=== PATIENT | female | born 1975 | race African-American/Black ===

== ENCOUNTER → 2022-05-22 | Outpatient (CLI) | payer MEDICARE, MEDICAID, SELFPAY ==
--- NOTE | 2022-05-22 10:10 | RAD_ITS ---
STUDY: X-RAY - ESOPHAGUS (BARIUM SWALLOW) WITH FLUOROSCOPY REASON FOR EXAM: Female, 46 years old. DYSPHAGIA. The patient is status post hiatal hernia repair. TECHNIQUE: 16 view(s) of the esophagus were obtained following swallowing of barium. FLUOROSCOPY TIME (if supplied): (36 seconds) minutes/seconds COMPARISON: None. FINDINGS: There is no demonstrated esophageal foreign body. There is no demonstrated stricture or mucosal abnormality. A metallic ring is seen at the gastroesophageal junction with narrowing of the gastroesophageal junction. The patient ingested a 12 mm tablet at bedtime. The tablet is trapped at the gastroesophageal junction. Normal visualized aortic arch and descending thoracic aorta. Normal visualized pulmonary parenchyma. Normal visualized osseous structures of the thorax. RAD/Esophagus Single Contrast IMPRESSION: Metallic bands seen at the gastroesophageal junction with narrowing of the distal esophagus. The ingested 12 mm tablet of barium is trapped at that site. Electronically Signed: Jonas Robles MD at 14:05 EST ,
== END | disposition home or self-care (01) ==
PROVIDERS: Referring Provider Otolaryngology Otolaryngology/Facial Plastic Surgery; Visit Provider Otolaryngology Otolaryngology/Facial Plastic Surgery
DX: R13.10 Dysphagia, unspecified (principal)
CPT/HCPCS: 74220

== ENCOUNTER → 2023-01-31 | Outpatient (CLI) | payer MEDICARE, MEDICAID, SELFPAY ==
[2023-01-31 16:03] LABS: Free T3 2.5 pg/mL (2.18-3.98); Thyroid Stim Hormone (TSH) 0.65 uIU/mL (0.358-3.74)
== END | disposition home or self-care (01) ==
LOC: PAVLAB 15:21
PROVIDERS: Referring Provider Surgery; Visit Provider Surgery
DX: E04.2 Nontoxic multinodular goiter (principal)
CPT/HCPCS: 36415; 84436; 84443; 84481

== ENCOUNTER → 2023-02-01 | Outpatient (CLI) | payer MEDICARE, MEDICAID, SELFPAY ==
--- NOTE | 2023-01-31 15:00 | FLU_PTH ---
PATIENT: CYNTHIA HACKETT LOC: [facility] U#:[id number] AGE/SX: 47/F ROOM: RE02/01/[address]: Dr. Tad Mackey MD : 1975 BED: DIS: 02/01/2023 SPEC #: [id number] RECD: 02/01/23 07:16 STATUS: JACKIE ALYCIA #: [id number] DANIEL: 01/31/23 15:[address]: Tad Mackey DEPT: CYTOLOGY RECD BY: Danielle Mason ENTERED: 02/01/23 10:36 SP TYPE: Fluid OTHR DR: No Primary Care Phys Tissues: A - Thyroid gland, NOS B - Thyroid gland, NOS C - Thyroid gland, NOS D - Thyroid gland, NOS E - Thyroid gland, NOS F - Thyroid gland, NOS Procedures: Special Stain Group II Surgery Specimen Level IV Cytospin Fluid Cytology Other HEADER OPERATION: Ultrasound-guided fine needle aspiration PRE-OP DIAGNOSIS: Multinodular goiter TISSUE SUBMITTED: A - Right inferior nodule fluid, B - Right inferior nodule x4 slides, C - Right superior nodule fluid, D - Right superior nodule fluid x4 slides, E - Left inferior nodule fluid, F - Left inferior nodule x4 slides DIAGNOSIS CYTOLOGY A. Fine needle aspiration, right inferior thyroid nodule (cytospin and cell block): Benign, consistent with benign follicular nodule with cystic component (Abrams Category II). See comment. B. Fine needle aspiration, right inferior thyroid nodule (smears): Atypia of undetermined significance (Abrams Category III). See comment. C. Fine needle aspiration, right superior thyroid nodule (cytospin and cell block): Benign, consistent with benign follicular/colloid nodule with cystic change (Abrams Category II). See comment. D. Fine needle aspiration, right superior thyroid nodule (smears): Benign, consistent with benign follicular/colloid nodule with cystic change (Abrams Category II). See comment. E. Fine needle aspiration, left inferior thyroid nodule (cytospin and cell block): Benign, consistent with benign follicular/colloid nodule with cystic change (Abrams Category II). See comment. F. Fine needle aspiration, left inferior thyroid nodule (smears): Benign, consistent with benign follicular/colloid nodule with cystic change (Abrams Category II). See comment. AM:cristi 02/02/2023 COMMENT A-F. The Abrams System for thyroid diagnostic categorization was used in the evaluation of this case. All specimens are adequate for evaluation. Multi-gene next-generation sequencing panel (Afirma) is recommended for this lesion. This recommendation was communicated to the physician's office. CYTOLOGY STUDY Slides are reviewed. CYTOLOGY GROSS A - Received is 40 ml of red cloudy fluid labeled with the patient's name and and designated per the requisition as right inferior nodule. Submitted for cytology preparation including cell block. B - Received are four smears labeled with the patient's name and designated per the requisition as right inferior nodule. Submitted for staining. C - Received is 20 ml of red cloudy fluid labeled with the patient's name and and designated per the requisition as right superior nodule. Submitted for cytology preparation including cell block. D - Received are four smears labeled with the patient's name and designated per the requisition as right inferior nodule. Submitted for staining. E - Received is 30 ml of red cloudy fluid labeled with the patient's name and and designated per the requisition as left inferior nodule. Submitted for cytology preparation including cell block. F - Received are four smears labeled with the patient's name and designated per the requisition as left inferior nodule. Submitted for staining. / cristi 02/01/2023 TC:? CPT: 26800 x6, 31274 x3
== END | disposition home or self-care (01) ==
LOC: LABSPEC 07:34
PROVIDERS: Referring Provider Surgery; Visit Provider Surgery
DX: E04.2 Nontoxic multinodular goiter (principal)
CPT/HCPCS: 88108; 88161; 88305; 88313

== ENCOUNTER → 2023-02-13 | Outpatient (CLI) | payer MEDICARE, MEDICAID, SELFPAY | END | disposition home or self-care (01) | PROVIDERS: Referring Provider Surgery; Visit Provider Surgery | DX: R69 Illness, unspecified (principal) ==

== ENCOUNTER → 2023-03-05 | Outpatient (CLI) | payer MEDICARE, MEDICAID, SELFPAY ==
--- NOTE | 2023-03-05 08:45 | FLU_PTH ---
PATIENT: CYNTHIA HACKETT LOC: [facility] U#:[id number] AGE/SX: 47/F ROOM: RE03/05/[address]: Dr. Tad Mackey MD : 1975 BED: DIS: 03/05/2023 SPEC #: [id number] RECD: 03/05/23 11:43 STATUS: JACKIE RELovely #: [id number] DAINEL: 03/05/23 08:[address]: Tad Mackey DEPT: CYTOLOGY RECD BY: Danielle Mason ENTERED: 03/05/23 11:44 SP TYPE: Fluid OTHR DR: No Primary Care Phys Tissues: A - Thyroid gland, NOS B - Thyroid gland, NOS Procedures: Special Stain Group II Surgery Specimen Level IV Cytospin Fluid Cytology Other HEADER OPERATION: Fine needle aspiration right inferior thyroid nodule PRE-OP DIAGNOSIS: Multiple thyroid nodules E04.2 TISSUE SUBMITTED: A - Right inferior thyroid nodule fluid, B - Right inferior thyroid nodule x4 slides DIAGNOSIS CYTOLOGY A. Right inferior thyroid nodule fluid, fine needle aspiration (cytospin and cell block): Negative for malignant cells. See comment. B. Right inferior thyroid nodule, fine needle aspiration (smears): Atypical follicular cells of undetermined significance, Cuba Category III. Adequate for evaluation. See comment. SJ:rg 03/06/2023 COMMENT A. The specimen is paucicellular and consists of a few clusters of benign follicular cells. B. Degenerative cells are also noted. Per recommendations and a clinician-approved plan (a call was made to the referring doctor about the recommendation), genomic testing (IronPearla) has been submitted. Results will be reported as an addendum and faxed to clinician. The Cuba System for thyroid diagnostic categorization was used in the evaluation of this case. Please make reference to previous specimen ([id number]) fine needle aspiration, right inferior thyroid nodule with diagnosis of atypia of undetermined significance. CYTOLOGY STUDY Slides are reviewed. CYTOLOGY GROSS A - Received is 30 ml of light pink cloudy fluid labeled with the patient's name and and designated per the requisition as right inferior thyroid nodule. Submitted for cytology preparation including cell block. B - Received are four smears labeled with the patient's name and designated per the requisition as right inferior thyroid. Submitted for staining. / cristi 03/05/2023 TC:5 CPT: 23374 x2, 78143 ADDENDUM ADDENDUM ADDENDUM ADDENDUM ADDENDUM ADDENDUM ADDENDUM 04/04/2023 08:20 ADDENDUM 04/04/2023 08:20 ADDENDUM 04/04/2023 08:20 ADDENDUM 04/04/2023 08:20 ADDENDUM 04/04/2023 08:20 AFIRMA RESULTS REPORT RESULTS INTERPRETATION: The result of this 1.6 cm Cuba III nodule A is Afirma GSC suspicious, which suggests a risk of cancer of approximately 50%. Please see complete report in e-chart or EMR
== END | disposition home or self-care (01) ==
LOC: LABSPEC 10:50
PROVIDERS: Referring Provider Surgery; Visit Provider Surgery
DX: E04.2 Nontoxic multinodular goiter (principal)
CPT/HCPCS: 88108; 88161; 88305; 88313

== ENCOUNTER 2023-04-25 13:29 | Observation (INO) | payer MEDICARE, MEDICAID, SELFPAY ==
[2023-04-17 08:48] LABS: Partial Thromboplast Time 31.3 Seconds (24.1-36.2)
[2023-04-17 09:12] LABS: Anion Gap 4 (5-15); BUN 11 mg/dL (7-18); BUN/Creat Ratio 11.9 RATIO (10-20); Calcium,Total 9.7 mg/dL (8.5-10.1); Chloride 100 mmol/L (98-107); Creatinine, Serum 0.93 mg/dL (0.55-1.02); EST Glomerular Filtration Rate 69 mL/min (>60); Est Glom Filt Rate - Afr Amer 83 mL/min (>60); Glucose 97 mg/dL (74-106); Potassium 3.4 mmol/L (3.5-5.1); Sodium Level 138 mmol/L (136-145)
[2023-04-19 14:09] LABS: Lamotrigine (Lamictal) Level 14.9 ug/mL (2.0-20.0)
[2023-04-25] VITALS (14 sets, daily range): BP systolic 114–150; BP diastolic 64–90; PULSE 95–122; RESP 16–18; TEMP 36.2–36.8; O2SAT 93–100; BMI 42.3; BMI 42.1
[2023-04-25] MEDS: Lactated Ringers 1,000 ML 15 ML IV ×2 (06:31→15:23)
[2023-04-25 07:02] LABS: Internal QC Validated? YES +Cl - CLEAR BKGD; Pregnancy, Serum, hCG Quali. NEGATIVE Negative
--- NOTE | 2023-04-25 07:10 | HP.PCM_ITS ---
History and Physical Date of Admission: 04/25/23 Date of Service: 04/02/23 MR#: [id number] Acct: [id number] Name: CYNTHIA Rosado Rep #: [id number] : 1975 Provider: Dr. Tad Mackey MD Age/Sex: 47/F Location: [facility] Status: Signed Intake Vital Signs 01/24/2309:18 04/02/2308:37 Height 5 ft 6 in BP 123/80 H Blood Pressure Location Rt brachial Position Sitting Respiration 17 Pulse 91 Pulse Source Monitor Temp 97.3 F L Temp Source Temporal Pulse Oximetry (%) 98 Oxygen Delivery Method room air Intake Visit Reasons: DISCUSS SURGERY Chief Complaint: discuss surgery Allergies No Known Allergies Allergy (Unverified 04/02/23 08:38) Medications losartan 50 mg-hydrochlorothiazide 12.5 mg tablet 1 tab PO DAILY 01/24/23 [History Confirmed 04/02/23] meloxicam 15 mg tablet 15 mg PO DAILY 01/24/23 [History Confirmed 04/02/23] olopatadine 0.1 % eye drops 1 drp ophthalmic (eye) BID 01/24/23 [History Confirmed 04/02/23] pantoprazole 20 mg tablet,delayed release 20 mg PO DAILY 01/24/23 [History Confirmed 04/02/23] valacyclovir 500 mg tablet (Valtrex) 1,000 mg PO DAILY 01/24/23 [History Confirmed 04/02/23] lamotrigine 150 mg tablet (Lamictal) 300 mg PO BID 04/02/23 [History Confirmed 04/02/23] PFSH Medical History Fatigue Multiple thyroid nodules Seizures Social History Smoking Status: Never smoker alcohol intake: never substance use type: does not use HPI HPI HPI: Patient 47-year-old female who made a prior surgical consultation visit 01/24/2023 but was not prepared for FNA biopsy of thyroid nodules as recommended. She presents today in follow-up with her family support (her mother) for discussions around surgical management of her condition. She denies any in terval changes to her health. Mostly the visit is centered around questions related to the proposed operation, however, patient's mother relates that there is significant apprehension from the family on undergoing another surgery for Ms. Rosado given a history of perioperative seizures during a past surgery on her foot. Below is recapitulated from patient's initial consultation visit for his review Patient is a 47-year-old female who presents for multiple thyroid nodules. They are referred for surgical consultation from Ms. Rosemarie NP. This was discovered incidentally during a work-up for some persistent right neck pain through the emergency department in [facility]. Patient had CT angio of the neck which initially showed the thyroid nodules followed by a formal thyroid ultrasound. Of note CT angio did demonstrate some tracheal deviation to the right from patient's large left-sided thyroid nodule. Patient reports that her pain is felt in the side (lateral) neck. She believes this was connected to a fall she experienced recently when she became profoundly dizzy and did not have anything nearby to grab onto. She states that she experiences a popping sensation in this part of her neck ever since. She reports that she has experienced this dizziness before and feels as though the room is spinning. She notes that her neurologist is aware of this issue. They do not experience difficulty with swallowing. They do not complain of a new cough. They do not appreciate new voice changes, but remarks that there is some hoarseness in the mornings. They do not have a history of snoring/sleep apnea. Additionally, their weight has been stable and they do not have a history of weight gain/loss. There is some history of recent fatigue, but Ms. Laguna states that she has had this for a long time and knows that it is related to a side effect of her antiseizure medication (Lamictal). They do not have a history of cold intolerance. Other symptoms include: Some tremor when nervous. Patient denies palpitations, anxiety, altered GI habits (specifically constipation or diarrhea). They do not have a family history of thyroid disorders or endocrinopathies. There [is/is no] history of prior radiation exposure. Previous work-up has included thyroid ultrasound. Study was performed 01/04/2023 and showed a 6.0 cm right-sided thyroid lobe and a 7.3 cm left-sided thyroid lobe (longitudinal dimensions only given). Radiology detected the right superior pole, midpole, and inferior pole nodules. It also identified left superior and inferior pole nodules. They state that the majority of the patient's thyroid nodules constitute TI-RADS 3 lesions, but identified the right inferior pole lesion as a TI-RADS 5 nodule and recommended biopsy. An FNA has n ot been performed. Other tests include: [TSH, T3, T4,etc ] ROS General General: Yes fatigue; No weight change, appetite, colon cancer, breast cancer or weakness HEENT HEENT: No difficulty swallowing, eye injury, eye surgery, swollen glands or hoarseness Endo Endocrine: Yes thyroid disease; No diabetes mellitus, thyroid cancer, Hair loss, heat intolerance or cold intolerance Skin Skin: No rash or changing moles Musc Musculoskeletal: No back problems, arthritis, rheumatoid arthritis, gout or joint pain Cardio Cardiovascular: No murmur, pacemaker, heart disease, atrial fibrillation, high blood pressure, heart attack, heart stent, palpitations, shortness of breat with exertion or chest pain Psych Psychiatric: No depression, anxiety or hearing voices Resp Respiratory: No shortness of breath, No sleep apnea, No cough, No COPD, No asthma, No emphysema and No wheezing Gastro Gastrointestinal: No abdominal pain, No nausea or vomiting, No diarrhea, No co nstipation, No blood in stool, No acid reflux, No hemorrhoids, No ulcers, No gallbladder problem and No black,tarry stools Andrew Hematologic: No blood thinners, No blood disorders, No bleeding, No anemia and No blood clots Neuro Neurologic: No system reviewed and no additional complaints, except as documented, No as per HPI, No abnormal gait, No abnormal hearing, No abnormal movements, No abnormal speech, No behavioral changes, No burning sensations, No confusion, No convulsions, No disequilibrium, No dizziness, No localized weakness, No frequent falls, No headache(s), No lack of coordination, No loss of vision, No memory loss, No numbness, No other visual disturbances, No radicular pain, No restless legs, No sensory deficit, No syncope, No tingling, No tremor(s), No weakness and No other Exam Const General: cooperative and comfortable Orientation: alert, awake and oriented x3 Neck Other: Enlarged thyroid, nontender, soft Assessment and Plan Assessment and Plan (1) Multiple thyroid nodules: Status: Acute Comment: This is a 47-year-old female who presents for incidentally noted thyroid nodule during CT angio for work-up of right lateral neck discomfort. Of note this s tudy primarily focused on a large left-sided thyroid nodule contributing rightward tracheal deviation. This was followed up with a formal ultrasound on 01/04/2023 which showed a 1.5 cm TI-RADS 5 nodule as well as a 5.4 cm left-sided thyroid nodule causing rightward tracheal deviation seen by CT imaging. Ms. Rosado has undergone work-up of this right-sided nodule with a FNA biopsy in January (alongside biopsies of a right superior pole and left inferior pole nodule) and then a repeat biopsy of the right inferior pole nodule for Afirma testing last visit 03/05/2023. Patient's affirm a result was consistent with a suspicious result. Today I held a lengthy conversation with patient and her mother regarding the current status of her work-up as well as my recommendation to proceed with a total thyroidectomy with intraoperative nerve monitoring given that we are in a position with suspicious cytology and genetics on the right and compressive physiology from the left-sided thyroid nodule. The procedure?specific risks including discussions around recurrent laryngeal nerve injury and parathyroid injury were detailed and hand drawings were used to illustrate the relevant anatomy. I did discuss with patient and her mother that this would be a overnight observational stay to monitor for any signs of bleeding or hypocalcemia. Patient and her family have some concerns for perioperative seizure activity as were experienced with the patient's most recent surgery on her foot. She also wishes to know whether this will negatively impact her swallowing. Based on her description she has a history of esophageal web status post dilation and has persistent dysphagia. I discussed with her that her 5.4 cm left-sided thyroid nodule could be contributing to her dysphagia due to a compressive phenomenon. Ms. Rosado and her mother expressed appreciation for this discussion and understanding of the relevant points. They understand that she will require thyroid hormone for the rest of her life following this procedure. All questions were answered to their satisfaction and they elected to proceed with scheduling surgery at the conclusion of today's visit. Plan: Total thyroidectomy with intraoperative nerve monitoring tentatively planned for 04/25/2023. Patient to be admitted postoperatively for close monitoring. I have examined the patient and the H&P has been reviewed. There are no clinical changes since date of exam. Procedure and post procedure expectations were reviewed with patient and her family. Consents were confirmed. They expressed appreciation for this information. We will plan to proceed to the operating room for total thyroidectomy with intraoperative nerve monitoring as discussed above.
--- NOTE | 2023-04-25 07:30 | THYROID_PTH ---
PATIENT: CYNTHIA HACKETT LOC: [facility] U#:[id number] AGE/SX: 47/F ROOM: IN310 RE04/25/[address]: Dr. Tad Mackey MD : 1975 BED: 1 DIS: 04/26/2023 SPEC #: [id number] RECD: 04/25/23 13:53 STATUS: JACKIE RELovely #: [id number] DANIEL: 04/25/23 07:[address]: Tad Mackey DEPT: SURGICAL PATHOLOGY RECD BY: Danielle Mason ENTERED: 04/26/23 09:45 SP TYPE: THYROID OTHR DR: Dr. Osvaldo Cruz MD No Primary Care Phys Tissues: Thyroid gland, NOS Procedures: Surgery Specimen Level V HEADER OPERATION: Thyroidectomy with isthmus and intraoperative nerve monitoring PRE-OP DIAGNOSIS: Multiple thyroid nodules TISSUE SUBMITTED: Total thyroid, long stitch rose right superior, short stitch rose detached left inferior pole MICROSCOPIC DIAGNOSIS Thyroid, total thyroidectomy: Multinodular goiter. See comment. SJ:rg 04/27/2023 COMMENT Many of the nodules show cystic changes, fibrosis and focal calcifications. Please make reference to previous specimen ([id number]), FNA, right inferior thyroid nodule with diagnosis of consistent with benign follicular nodule with cystic component and right inferior thyroid nodule with diagnosis of atypia of undetermined significance and right superior thyroid nodule with diagnosis of consistent with benign follicular/colloid nodule with cystic changes and right superior thyroid nodule with diagnosis of consistent with benign follicular/colloid nodule with cystic changes, and left inferior thyroid diagnosis with diagnosis of consistent with benign follicular/colloid nodule with cystic changes and FNA, left thyroid nodule diagnosis of benign follicular/colloid nodule with cystic changes and ([id number]) right inferior thyroid nodule, FNA with diagnosis of atypical follicular cells of undetermined significance. MICROSCOPIC DESCRIPTION Slides are reviewed. GROSS DESCRIPTION Received in fixative is one container labeled with the patient's name and designated total thyroid, long stitch rose right superior, short stitch rose detached left inferior pole. The specimen consists of a total thyroidectomy specimen in multiple pieces weighing in aggregate 56.8 gm. The specimen is oriented as follows: long stitch - right superior, short stitch - left inferior pole; however, no short stitch is noted in any of the specimen pieces received. The largest piece with long stitch consists of right lobe and portion of left lobe. The isthmus could not be clearly oriented. The right lobe measures 5.5 x 2.5 x 2.0 cm and the portion of left lobe in the largest piece measures 8.0 x 3.5 x 1.5 cm. Detached largest piece measures 4.5 x 4.0 x 3.5 cm and additional smaller pieces measure in aggregate 5.0 x 5.0 x 2.0 cm. The largest piece is inked as follows: posterior surface right and left lobe - black, anterior surface right lobe - blue and anterior surface left lobe - green. Sections of the right lobe reveal a canas-white, solid nodule occupying the superior to mid pole measuring 2.5 x 1.5 x 1.5 cm. Sections of the left lobe in the largest piece reveal multiple nodules with focal hemorrhagic area. The largest nodule measures 2.5 cm in greatest dimension. Section of the largest detached cystic nodule shows extensive hemorrhagic cut surfaces. A detached fragment of blood clot is also noted. Segment of smaller detached pieces reveal colloid nodules with colloidy cut surfaces. Mechanical Engineering Advisor sections are submitted in as follows: 1-8 - right lobe (1 containing most superior portion and 8 containing most inferior portion), 8-14 - left lobe attached to the largest piece, 15-19 - largest detached cystic nodule, 20 & 21 - detached smaller pieces of tissue. / SJ:cristi 04/26/2023 TC:5 CPT: 68231
[2023-04-25] MEDS: Bupivacaine 0.25% 30 ML Vial (13:15)
--- NOTE | 2023-04-25 13:25 | PCM.OPRPT ---
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 and large left-sided mixed composition nodule causing mass effect and tracheal deviation Post-Operative Diagnosis: Same Surgery/Procedure Performed:: Total thyroidectomy with intraoperative nerve monitoring Description of Surgical Findings:: Right side superior parathyroid ischemic but viable and right inferior parathyroid intact and well-perfused Left-sided parathyroids intact and well perfused, visually intact left recurrent laryngeal nerve Surgeon: Tad Mackey torch heater: Elvin Calderón torch heater: Marianela Littlejohn Type of Anesthesia: General/Supplemental Anesthesiologist: Stas Alas Specimen's removed: Total thyroid with long stitch marking the right superior pole and short stitch marking left inferior pole Estimated Blood Loss (mL): 100 Description of Procedure: After appropriate identification in the preoperative holding area, the patient was brought to the operating room where she was positioned supine with arms tucked taking care to pad the ulnar nerve bilaterally. Induction of general endotracheal anesthetic was begun and a NIMS tube was placed under glidescope view to confirm coaptation with the vocal cords anteriorly. This tube was then secured and the patient was positioned with a shoulder roll so that her head was in extension but supported. The Nims electrodes were placed and connected to the monitor. We had appropriate resistance showing on the monitor and tapping at the level of the cricoid produce a graphical representation of the impulse on the monitor. Patient's neck was then prepped and draped in usual sterile fashion and a formal timeout was conducted with those present. The lowest skin fold adjacent to the location of the cricoid cartilage was selected for incision site (this resided approximately 2 fingerbreadths cephalad to the notch). Local anesthetic was instilled and a incision was extended for 3 cm on either side of midline. Electrocautery was used to deepen this incision through the level of the platysma. Subplatysmal flaps were raised with the use of electrocautery and blunt dissection. The strap muscles were then divided along the medial raphe bringing us down to the level of the thyroid. Capsular attachments to the thyroid were divided with the use of LigaSure or bluntly swept away with a peanut sponge. This proved to be exceptionally tedious given the fragile nature of the gland and the tenacious adhesions between the gland and the strap muscle resulting in diffuse oozing. Retractors were placed providing visualization of the superior pole of the right lobe of the thyroid. The vessels of the superior pole were sequentially ligated with the use of the LigaSure device. As we moved towards the thyroid gland away from the pole vessels, we visualized the superior parathyroid gland. We then moved inferiorly and divided those polar vessels with LigaSure. The inferior parathyroid gland was grossly visualized and preserved with this division. With the poles freed the thyroid was mobilized medially by bluntly the remaining strap muscle fibers from the thyroid capsule and using LigaSure to divide the middle thyroid vein. To facilitate even further improved exposure I made the decision to divide the strap muscles in a transverse orientation using the LigaSure device. During this dissection it was apparent that the patient had a large tubercle of Zuckerkandl. Blunt dissection parallel to the presumed course of the recurrent laryngeal nerve was used to expose the tracheoesophageal groove. Unfortunately despite meticulous dissection I was not able to visualize a nerve nor confirm a signal from our Nims monitor. On facing this difficulty and a slower dissection due to oozing I requested the assistance of my partner Dr. Calderón to the room. I became suspicious for monitor dysfunction and when Dr. Calderón arrived to the room we discussed potentially testing the nerve after opening the carotid sheath, but jointly decided that the degree of inflammatory change may produce more risk to the nerve and so we simply opted to proceed with completing dissection of the right thyroid lobe and then moving to the contralateral lobe. Together, we were able to carefully remove the remaining attachments of the right thyroid lobe from around the presumed course of the nerve using fine blunt dissection and tying a remnant of thyroid tissue and the presumed location of the nerve insertion. Once the right thyroid lobe was elevated at least 2 to 3 mm anterior to the insertion point, electrocautery was used to remove the isthmus from the anterior surface of the trachea. There was a small pyramidal lobe which was dissected free of the anterior surface of the thyroid cartilage. We then moved to removal of the left thyroid lobe with a similar technique taking care to remove the strap muscles from their capsular attachments to the lobe. Once again, the muscle appeared densely adherent to the anterior thyroid capsule, but with some blunt spreading I was able to enter the appropriate plane and took care of some small bleeding vessels on the anterior surface of the thyroid. The superior pole vessels were taken in like fashion with use of LigaSure energy. We approached the inferior pole it was apparent that the patient's mixed composition inferior pole nodule appeared to have grown somewhat in size and was partially lodged beneath the left clavicle. Finger fracture was used to free the remaining attachments of the strap muscles to the thyroid capsule and tried to deliver the thyroid anteriorly. The metered force of this maneuver, however was not enough to disrupt the cyst portion of this nodule and resulted in rupture of the cystic contents into the surgical field which were scooped up and passed to our set up mold technician for inclusion with hours specimen. The resultant hole in the anterior surface of the thyroid was quickly closed in a whipstitch using 3-0 silk. This served to address some of the resultant bleeding as well as provide a point of traction on the gland. Gradually the inferior pole vessels and attachments were bluntly dissected and secured with LigaSure. We were careful to secure these vessels proximal to the area of a grossly identified inferior parathyroid gland. The strap muscles were then divided transversely and the neck incision was slightly enlarged as I sought to provide better exposure. Then the thyroid was then mobilized medially and the tracheoesophageal groove was developed. During this dissection identified what appeared to be the left recurrent laryngeal nerve coursing towards the trachea. Once again I trialed our Nims monitor but was unable to obtain a signal on the structure. I attempted to confirm that our resistance was appropriate on the monitor and that our electrodes were connected, but on finding these things to be in satisfactory position had to conclude that the monitor was simply still not reliable. On making this assumption I elected to leave a thyroid remnant on the trachea to avoid any risk to the recurrent nerve at its insertion point. Additional fine blunt dissection was used to remove the remaining thyroid attachments to the trachea at the ligament of Hanley and this thyroid tissue was secured and a silk ligature then sharply divided. Again, once we were 2 to 3 mm away from the area of the nerve insertion, the gland was removed from the trachea with the use of electrocautery. As I attempted to take the gland off the tracheal cartilage superiorly it was apparent that I came down on the cartilage and had removed all the overlying soft tissue. Wanting to provide some buffer to the trachea I closed some of the cricothyroid muscle over the trachea using a 3-0 Vicryl suture. Our final specimen was marked with a 3-0 silk stitch through the right upper pole and passed off the field for pathologic processing (the left superior pole cyst had become disassociated from the overall specimen during retraction and the traction suture was cut short to designate long suture for the right superior pole and short suture for the left inferior pole). Both surgical cavities were inspected for hemostasis; some oozing in the right superior pole was addressed with performing a stick tie using 3-0 silk. I also identified that the right superior parathyroid appeared mildly ischemic but yet still viable so I decided against removal and autotransplantation. Closer to the nerve there was some additional oozing and Surgicel hemostatic agent was placed bilaterally while pressure was applied. Once this pressure was relieved, the surgical cavity was again inspected and on the right side we found hemostasis to be intact. Unfortunately on the left side there still appear to be some diffuse oozing. Bipolar energy was used judiciously adjacent the trachea and I performed a second stick tie of the thyroid remnant to try to obtain hemostasis. Overall this resulted in a reduction of the bleeding but not complete cessation. Therefore, I requested some Surgicel snow and cut a fine strip of this hemostatic agent to fit along the groove. Manual pressure was applied through a inserted Ray-Chucho. Ultimately this did result in hemostasis. Satisfied with this result, the strap muscles were reapproximated with 3-0 Vicryl in a [id number] fashion after having been divided transversely. They were then closed longitudinally with a running 3-0 Vicryl stitch leaving a small gap at the inferior aspect of the suture line. The platysmal flaps were closed with interrupted 3-0 Vicryl. Some additional local anesthetic was infiltrated throughout the dermis and the skin was closed in a subcuticular fashion using 4-0 Monocryl. Steri-Strips were applied. OpSite dressing were used as a dressing. The patient was then awakened from anesthetic without event and was taken to PACU for ongoing recovery. Complications None Admit VTE Documentation VTE Mechan Device Prophylaxis: SCD's Procedures Endocrine CF Procedures [id number]: [id number] Removal of thyroid
[2023-04-25 14:41] LABS: PTHIN 23.3 pg/mL (18.4-80.1)
--- NOTE | 2023-04-25 15:08 | SUR.PHASEI ---
awaiting on room upstairs
[2023-04-25] MEDS: Calcium Carb/Vitamin D 1 TABLET Tablet PO (17:33)
[2023-04-25] MEDS: 0.9% Normal Saline (1000mL) 1,000 ML 125 ML IV (19:32)
[2023-04-25] MEDS: Acyclovir 200 MG Capsule 400 MG PO (23:05)
[2023-04-26] MEDS: 0.9% Normal Saline (1000mL) 1,000 ML 125 ML IV (03:32)
[2023-04-26 05:14] VITALS: BP 143/81; PULSE 102; RESP 18; TEMP 36.7; O2SAT 95
[2023-04-26] MEDS: BENZOCAINE/MENTHOL 1 LOZENGE MUCOUS MEM (05:20)
[2023-04-26] MEDS: Levothyroxine 100 MCG Tablet 200 MCG PO (06:52)
[2023-04-26 07:31] VITALS: BP 130/61; PULSE 98; RESP 16; TEMP 37.1; O2SAT 98
[2023-04-26] MEDS: Calcium Carb/Vitamin D 1 TABLET Tablet PO ×2 (07:52→11:00)
[2023-04-26 09:12] LABS: PTHIN 25.2 pg/mL (18.4-80.1)
[2023-04-26] MEDS: Acyclovir 200 MG Capsule 400 MG PO (10:57)
[2023-04-26] MEDS: Acetaminophen 500 MG Tablet PO (11:01)
--- NOTE | 2023-04-26 11:46 | DCINST_ITS ---
Discharge Instructions Diet Discharge Diet: No restrictions (However recommend a liquid to soft diet initially postoperatively) Activity Discharge Activity: May Not Drive (While it remains difficult to check blind spots quickly) May shower in (days): 2 Ice area for (Minutes): 20 Lifting Restrictions: No lifting greater than 15 pounds for 2 weeks after surgery Additional Activity Instructions:: Continue practice range of motion exercises for neck Dressing / Incision Call your doctor if your incision/area has: Continuous Slow Oozing, Sudden Increased Bleeding, Increased Pain/ Swelling, Increased Redness and Swelling at the incision site Call your doctor if you observe: Numbness or Tingling Remove Dressing in: 1 day (Please leave Steri-Strips intact until they fall off spontaneously or are taken off at your follow-up visit) Cleanse incision/area with: Soap & Water Follow Up Care Please Follow Up With: Tad Mackey MD When: 10 to 14 days postop Test Results: Test results from this visit will be discussed in further detail at your follow- up appointment, if applicable. Discharge Plan Admission Admit Date/Time: 04/25/23 13:29 Primary Reason for Your Visit: Total thyroidectomy Attending Provider: Tad Mackey Primary Care Provider: Care Physician,No Primary Consulting Providers: Osvaldo Cruz Discharge Orders/Prescriptions Prescriptions: New levothyroxine 100 mcg Tablet 200 mcg PO DAILY 35 Days Qty: 70 0RF calcium carbonate-vitamin D3 [Oyster Shell Calcium-Vit D3] 500 mg-5 mcg (200 unit) Tablet 1 tab PO TIDCM Qty: 60 1RF Rx Instructions: Please take 2 tabs in AM and then 1 tab at lunchtime and dinnertime Continued losartan-hydrochlorothiazide 50-12.5 mg tablet 1 tab PO DAILY meloxicam 15 mg tablet 15 mg PO DAILY olopatadine 0.1 % drops 1 drp ophthalmic (eye) BID Rx Instructions: separate doses by at least 6-8 hours valacyclovir [Valtrex] 500 mg tablet 1,000 mg PO DAILY lamotrigine [Lamictal] 150 mg tablet 300 mg PO BID Referrals / Follow Up: Care Physician,No Primary [Primary Care Provider] - Disposition Disposition (needs filled in before D/C Order can be placed): Home, Self Care
--- NOTE | 2023-04-26 11:55 | PCM.DC.SUM ---
Providers Date of Admission: 04/25/23 Primary Care Physician: No Primary Care Phys Reason For Visit: Thyroidectomy w/ isthmus and IONM Medications at Discharge Home Medications losartan 50 mg-hydrochlorothiazide 12.5 mg tablet 1 tab PO DAILY 01/24/23 meloxicam 15 mg tablet 15 mg PO DAILY 01/24/23 olopatadine 0.1 % eye drops 1 drp ophthalmic (eye) BID 01/24/23 valacyclovir 500 mg tablet (Valtrex) 1,000 mg PO DAILY 01/24/23 lamotrigine 150 mg tablet (Lamictal) 300 mg PO BID 04/02/23 calcium carbonate 500 mg-vitamin D3 5 mcg (200 unit) tablet (Oyster Shell Calcium-Vitamin D3) 1 tab PO TIDCM #60 tabs 04/26/23 levothyroxine 100 mcg tablet 200 mcg (2 x 100 mcg) PO DAILY 5 weeks #70 tabs 04/26/23 Hospital Course Operations - (Total thyroidectomy 04/25/2023) Procedures None Summary of Care Provided Hospital Course: Patient is a 47-year-old female who underwent total thyroidectomy with intraoperative nerve monitoring on 04/15/2023. Although the operation was difficult due to abundant adhesions and a gelatinous composition too much of the patient's thyroid gland it did proceed in an uneventful fashion. The patient was admitted post procedurally for observational stay as routine. Postoperative day 1 she appears to be doing much better with complaints of a sore throat but remains overall improved. Her neck is benign on exam. I have reviewed postoperative expectations?including changes to medication?to include use of both calcium and supplemental thyroid hormone. I have also reviewed expectation for outpatient follow-up in 10 to 14 days. Patient confirms understanding and is thus granted discharged home. She confirms that she will have family available to her upon discharge. Physical Exam Const alert, oriented x3 and no apparent distress Neck Neck Narrative: Dressing remains intact without strikethrough. There is no significant swelling. Patient has minimal tenderness upon palpation and the soft tissues remain soft. Weight / BMI Weight Weight: 262 lb 5.601 oz Body Mass Index (BMI) 42.1 ABG / Lab / Microbiology Data 04/17/23 08:15 Laboratory: Laboratory Results - last 24 hr 04/25/23 14:10: PTH Intact 23.3 04/26/23 06:35: Calcium 8.0 L, PTH Intact 25.2 D/C Instructions Discharge Diet: No restrictions (However recommend a liquid to soft diet initially postoperatively) May shower in (days): 2 Ice area for (Minutes): 20 Additional Activity Instructions: Continue practice range of motion exercises for neck Call your doctor if your incision/area has: Continuous Slow Oozing, Sudden Increased Bleeding, Increased Pain/ Swelling, Increased Redness and Swelling at the incision site Call your doctor if you observe: Numbness or Tingling Cleanse incision/area with: Soap & Water Please Follow Up With: Tad Mackey MD When: 10 to 14 days postop Meaningful Use Info Meaningful Use Diagnoses (Choose all that apply): None applicable Discharge Plan Admission Admit Date/Time: 04/25/23 13:29 Primary Reason for Your Visit: Total thyroidectomy Attending Provider: Tad Mackey Primary Care Provider: Care Physician,Rose Primary Consulting Providers: Osvaldo Cruz Discharge Orders/Prescriptions Prescriptions: New levothyroxine 100 mcg Tablet 200 mcg PO DAILY 35 Days Qty: 70 0RF calcium carbonate-vitamin D3 [Oyster Shell Calcium-Vit D3] 500 mg-5 mcg (200 unit) Tablet 1 tab PO TIDCM Qty: 60 1RF Rx Instructions: Please take 2 tabs in AM and then 1 tab at lunchtime and dinnertime Continued losartan-hydrochlorothiazide 50-12.5 mg tablet 1 tab PO DAILY meloxicam 15 mg tablet 15 mg PO DAILY olopatadine 0.1 % drops 1 drp ophthalmic (eye) BID Rx Instructions: separate doses by at least 6-8 hours valacyclovir [Valtrex] 500 mg tablet 1,000 mg PO DAILY lamotrigine [Lamictal] 150 mg tablet 300 mg PO BID Referrals / Follow Up: Care Physician,No Primary [Primary Care Provider] - Disposition Disposition (needs filled in before D/C Order can be placed): Home, Self Care Charges/Coding Visit Charges Inpatient E&M: 09685 Disch Hosp
== END 2023-04-26 14:07 | disposition home or self-care (01) ==
LOC: MS3 04-26 01:39 → SDC 04-26 10:10 → MS3 04-26 10:10
PROVIDERS: Anesthesiology; Admitting Provider Surgery; Referring Provider Surgery; Visit Provider Surgery
PROC: (CPT 60240; principal; 2023-04-25 07:15)
DX: E04.2 Nontoxic multinodular goiter (principal); G40.909 Epilepsy, unspecified, not intractable, without status epilepticus; R49.0 Dysphonia; Z79.899 Other long term (current) drug therapy; I10 Essential (primary) hypertension; K21.9 Gastro-esophageal reflux disease without esophagitis
CPT/HCPCS: 60240; 00320; 36415; 80048; 82310; 82542; 83970; 84703; 85730; 88307; 96360; 96361; 99221; J7030; J7120; G0378; J2405

== ENCOUNTER → 2023-05-11 | Outpatient (CLI) | payer MEDICARE, MEDICAID, SELFPAY ==
[2023-05-11 11:07] LABS: Calcium,Total 9.5 mg/dL (8.5-10.1)
[2023-05-11 11:12] LABS: PTHIN 62.6 pg/mL (18.4-80.1)
== END | disposition home or self-care (01) ==
PROVIDERS: Referring Provider Surgery; Visit Provider Surgery
DX: E89.0 Postprocedural hypothyroidism (principal)
CPT/HCPCS: 36415; 82310; 83970

== ENCOUNTER → 2023-06-08 | Outpatient (CLI) | payer MEDICARE, MEDICAID, SELFPAY ==
[2023-06-08 14:02] LABS: PTHIN 58.7 pg/mL (18.4-80.1)
[2023-06-08 14:16] LABS: Calcium,Total 8.9 mg/dL (8.5-10.1); Free T3 2.6 pg/mL (2.18-3.98); T4 Total, Thyroxin 16.4 ug/dL (4.8-13.9); Thyroid Stim Hormone (TSH) 0.05 uIU/mL (0.358-3.74)
== END | disposition home or self-care (01) ==
LOC: LAB 12:30
PROVIDERS: Referring Provider Surgery; Visit Provider Surgery
DX: E89.0 Postprocedural hypothyroidism (principal); E21.3 Hyperparathyroidism, unspecified; E04.2 Nontoxic multinodular goiter
CPT/HCPCS: 36415; 82310; 83970; 84436; 84443; 84481

== ENCOUNTER 2025-03-31 09:47 | Emergency (ER) | payer MEDICARE, MEDICAID, SELFPAY ==
[2025-03-31 09:48] VITALS: BP 158/94; PULSE 87; RESP 14; TEMP 36.1; O2SAT 98; BMI 44.6
--- NOTE | 2025-03-31 10:10 | CT_ITS ---
PROCEDURE: ABDOMEN/PELVIS W IV CONT ONLY 03/31/2025 REASON FOR EXAM: LEFT-SIDED ABDOMINAL PAIN TECHNIQUE: Procedure Code: [id number] Modality: CT Procedure: ABDOMEN/PELVIS W IV CONT ONLY Coronal and Sagittal reconstruction series were provided. CONTRAST: Isovue 370 VOLUME: 75 mL One or more dose reduction techniques were used (e.g., Automated exposure control, adjustment of the mA and/or kV according to patient size, use of iterative reconstruction technique. RADIATION DOSE SUMMARY: CTDlvol: 24.09 mGy DLP: 1223.16 mGycm COMPARISON: None. FINDINGS: Lung bases: Clear. Liver: Unremarkable. Gallbladder: Status post cholecystectomy. No biliary dilation. Spleen: Unremarkable. Pancreas: Unremarkable. Adrenals: Unremarkable. Kidneys: Unremarkable. No hydronephrosis. No nephrolithiasis. Bladder: Unremarkable. Reproductive Organs: Unremarkable. Bowel: No bowel obstruction. Colonic diverticulosis without evidence of acute diverticulitis.. No bowel wall thickening. Appendix: Status post appendectomy. Lymph nodes: No lymphadenopathy. Vasculature: No aneurysm. No dissection. Peritoneum / Retroperitoneum: No free air or free fluid. Bones: No acute bony abnormalities. CT/Abdomen/Pelvis W IV Cont ONLY IMPRESSION: No acute abdominopelvic abnormalities. Reading Location: [facility]
[2025-03-31 10:27] LABS: Mucous, Urine 0 SEEN /hpf (<or=2+); Red Blood Cells-Urine 0 SEEN /hpf (0-5)
[2025-03-31 10:32] LABS: Color, Urine Yellow (Yellow); Glucose, Dipstick Normal (Normal); Ketone-Dipstick Negative (Negative); Leukocyte Esterase-Dipstick 25 /ul (Negative); Nitrite-Dipstick Negative (Negative); Occult Blood-Urine Negative /ul (Negative); Protein-Dipstick Negative (Negative); Specific Gravity, Urine 1.010 (1.002-1.030); Urine Bilirubin Dipstick Negative (Negative)
[2025-03-31 10:43] LABS: Squamous Epithelial Cells - UA 5-10 SEEN /hpf (5-10)
[2025-03-31 10:45] LABS: Hematocrit 38.8 % (37-47); Hemoglobin 12.6 g/dL (12.0-15.0); Immature Granulocytes Count 0.020 X10^3/uL (0.0-0.0); Mean Corp Hgb Conc 32.5 g/dL (32-36); Mean Corpuscular Volume 90.9 fL (81-99); Mean Platelet Vol. 8.9 fl (6.2-12.0); NRBC Flagged by Analyzer 0 % (0-5); Platelet Count 338 K/mm3 (150-450); RBC Distribution Width CV 13.4 % (11.6-14.6); RBC Distribution Width SD 44.8 fl (35.1-43.9); Red Blood Count 4.27 M/mm3 (4.2-5.4); White Blood Count 4.1 K/mm3 (4.4-11.0)
--- NOTE | 2025-03-31 10:52 | EX.ED.DYSGE1 ---
HPI History of Present Illness Chief Complaint: Abd Pain Narrative Narrative: Chief complaint and HPI: 49-year-old female with past medical history of seizures, HTN presents for evaluation of left-sided abdominal pain. Onset of symptoms yesterday evening. States she went to her dermatology appointment today and was sent to the emergency department for her pain. Triage note states it was her PCP however she declines this. Pain is mostly located in the left upper quadrant. She denies any trauma or falls. She denies any fever, chills, chest pain, shortness of breath, nausea, vomiting, diarrhea, constipation, dysuria. No history of urolithiasis. Review of systems: See HPI Medications: As listed on the chart Allergies: As listed on the chart PFSH: Per chart Vital signs: As listed on the chart. Reviewed. Physical exam: Gen: A&O x3, NAD Head: Normocephalic, atraumatic Eyes: No sclera icterus, conjunctiva clear ENT: Moist mucous membranes CV: RRR, no murmurs Resp: Lungs CTA BL, no w/r/c GI: Abd soft, non-distended, mild tenderness to palpation of the left upper quadrant no r/r/g : No CVA tenderness Musc: Full ROM, no deformity Skin: Warm, dry Neuro: Alert, oriented, grossly intact, sensation intact Psych: Cooperative, appropriate mood and affect [facility] Medical History Fatigue Gastric reflux Hx of fracture of ankle Hypertension Multiple thyroid nodules Non-smoker Seizures Throat clearing Wears glasses Home Medications ?Medication ?Instructions ?Recorded ?Last Taken ?Type losartan 50 mg-hydrochlorothiazide 1 tab PO DAILY 01/24/23 04/24/23 History 12.5 mg tablet meloxicam 15 mg tablet 15 mg PO DAILY 01/24/23 04/24/23 History olopatadine 0.1 % eye drops 1 drp ophthalmic (eye) BID 01/24/23 04/24/23 History valacyclovir 500 mg tablet 1,000 mg PO DAILY 01/24/23 04/24/23 History (Valtrex) lamotrigine 150 mg tablet 300 mg PO BID 04/02/23 04/25/23 History (Lamictal) calcium 500 mg (as 1 tab PO DAILY #60 tabs 12/01/23 Unknown Rx carbonate)-vitamin D3 5 mcg (200 unit) tablet (Oysco 500/D) levothyroxine 137 mcg tablet 137 mcg PO DAILY #35 TABLETS 10/17/23 Unknown Rx Allergy/AdvReac Type Severity Reaction Status Date / Time No Known Allergies Allergy Verified 06/08/23 12:40 Social History Smoking Status: Never smoker alcohol intake: never substance use type: does not use EXAM Physical Exam Const Vital Signs: 03/31/25 09:48 03/31/25 11:48 Temperature 96.9 F L Temperature Source Temporal Pulse Rate 87 71 Respiratory Rate 14 18 Blood Pressure 158/94 H 134/80 H Blood Pressure Mean 115 98 Pulse Ox 98 99 Oxygen Delivery Method Room Air Room Air MDM MDM MDM Narrative Medical decision making narrative: 49-year-old female with past medical history of seizures, HTN presents for evaluation of left-sided abdominal pain. Onset of symptoms yesterday evening. States she went to her dermatology appointment today and was sent to the emergency department for her pain. Pain is mostly located in the left upper quadrant. Differential diagnosis includes but is not limited to viral gastroenteritis, gastritis, pancreatitis, biliary pathology, UTI, urolithiasis. NS bolus, Zofran, morphine ordered. Abdominal pain workup ordered including CT abdomen pelvis. CBC with leukopenia of 4.1. No anemia. Platelets unremarkable. CMP unremarkable. Lipase unremarkable. Troponin unremarkable. UA negative for UTI. CT abdomen pelvis shows no acute intra-abdominal process. At this point in time, no clear etiology for patient's left-sided abdominal pain. I updated her about the results as well as a close contact over the phone that she wanted me to speak with. Follow-up with primary care physician. Return back to ED if symptoms change or worsen. Everyone confirmed understanding of the plan. Impression: 1. Left upper abdominal pain Lab Data Labs: Laboratory Results - last 24 hr 03/31/25 03/31/25 10:21 10:35 WBC 4.1 L RBC 4.27 Hgb 12.6 Hct 38.8 MCV 90.9 MCH 29.5 MCHC 32.5 RDW Std Deviation 44.8 H RDW Coeff of Janice 13.4 Plt Count 338 MPV 8.9 Immature Gran % (Auto) 0.500 Neut % (Auto) 57.1 Lymph % (Auto) 31.6 [place] % (Auto) 10.6 H Eos % (Auto) 0.0 Baso % (Auto) 0.2 Absolute Neuts (auto) 2.3 Absolute Lymphs (auto) 1.28 Nucleated RBC % 0 Sodium 139 Potassium 3.9 Chloride 100 Carbon Dioxide 28.1 Anion Gap 11 BUN 10 Creatinine 0.94 Estim Creat Clear Calc 96.96 Est GFR (MDRD) Non-Af 74 BUN/Creatinine Ratio 10.9 Glucose 88 Calcium 9.5 Total Bilirubin 0.35 AST 21 ALT 14 Alkaline Phosphatase 115 H Troponin T High Sens < 6 Total Protein 8.0 Albumin 4.2 Globulin 3.8 Albumin/Globulin Ratio 1.1 Lipase 21 Urine Color Yellow Urine Clarity Clear Urine pH 8.0 Ur Specific [place] 1.010 Urine Protein Negative Urine Glucose (UA) Normal Urine Ketones Negative Urine Occult Blood Negative Urine Nitrite Negative Urine Bilirubin Negative Urine Urobilinogen Normal Ur Leukocyte Esterase 25 H Urine RBC 0 SEEN Urine WBC 0 SEEN Ur Squamous Epith Cells 5-10 SEEN Urine Bacteria 0 SEEN Urine Mucus 0 SEEN Radiography Diagnostic Testing: Clinical Impression(s) from Imaging Studies Abdomen/Pelvis CT 03/31/25 10:10 IMPRESSION: No acute abdominopelvic abnormalities. Reading Location: [facility] Discharge Plan Triage Chief Complaint: Abd Pain ED Provider: Wili Foster Dx/Rx/DC Orders Prescriptions: No Action losartan-hydrochlorothiazide 50-12.5 mg tablet 1 tab PO DAILY meloxicam 15 mg tablet 15 mg PO DAILY olopatadine 0.1 % drops 1 drp ophthalmic (eye) BID Rx Instructions: separate doses by at least 6-8 hours valacyclovir [Valtrex] 500 mg tablet 1,000 mg PO DAILY lamotrigine [Lamictal] 150 mg tablet 300 mg PO BID calcium carbonate-vitamin D3 [Oysco 500/D] 500 mg-5 mcg (200 unit) tablet 1 tab PO DAILY Qty: 60 1RF levothyroxine 137 mcg tablet 137 mcg PO DAILY Qty: 35 0RF Primary Care Provider: AL TEMPLETON Referrals: Care Physician,No Primary [Non-Staff, Medical] Print Language: Tamazight
[2025-03-31] MEDS: 0.9% Normal Saline (1000mL) 1,000 ML 999 ML IV (11:16)
[2025-03-31 11:30] LABS: AST(SGOT) 21 U/L (<=31); Alanine Aminotransfer ALT/SGPT 14 U/L (<=34); Albumin, Serum 4.2 g/dL (3.5-5.0); Alkaline Phosphatase 115 U/L (35-104); Anion Gap 11 (5-15); BUN 10 mg/dL (4-19); BUN/Creat Ratio 10.9 RATIO (10-20); Calcium,Total 9.5 mg/dL (7.6-11.0); Carbon Dioxide 28.1 mmol/L (21.0-32.0); Chloride 100 mmol/L (98-108); Estimated Creatinine Clearance 96.96 ml/min (50-250); Globulin 3.8 g/dL (2.2-4.2); Glucose 88 mg/dL (70-99); Lipase 21 U/L (13-75); Potassium 3.9 mmol/L (3.3-5.1); Troponin T High Sensitivity < 6 ng/L (<=14)
[2025-03-31 11:48] VITALS: BP 134/80; PULSE 71; RESP 18; O2SAT 99
--- NOTE | 2025-03-31 12:00 | CM.ED ---
Social work Reason for referral: no PCP Referral source: case find SW identified patient's lack of PCP and need for resources. SW entered patient's room, introducing self and role at [facility]. Patient stated having a PCP, Alexey Shah, that had not been added to patient's chart prior to SW printing face sheet. Patient stated needing to show SW a card about patient's abdominal surgery that a nurse or doctor had been asking about. 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 SW passed along this information to patient's doctor should patient require admission and require an MRI. Patient denied further needs at this time. Delisa Elias, SERVICE TESTER, [employer]
[2025-03-31 12:45] VITALS: BP 131/74; PULSE 74; RESP 16; TEMP 36.8; O2SAT 99
== END 2025-03-31 13:05 | disposition home or self-care (01) ==
PROVIDERS: Emergency Provider Surgery; Visit Provider Surgery
DX: R10.12 Left upper quadrant pain (principal)
CPT/HCPCS: 74177; 80053; 81001; 83690; 84484; 85025; 96361; 96374; 96375; 96376; 99282; Q9967; A4216; J2405